=== PATIENT | female | born 2000 | race Caucasian/White ===

== ENCOUNTER 2020-08-12 08:13 | Emergency (ER) | payer SELFPAY ==
[~2020-08-12] VITALS: Ht 160 cm; Wt 59.1 kg
[2020-08-12 08:30] VITALS: BP 129/82
[2020-08-12] MEDS ORDERED: MAGIC MOUTHWASH1 M1 PO (09:46)
== END 2020-08-12 10:06 | disposition home or self-care (01) ==
LOC: ED 08:13
DX: J02.0 Streptococcal pharyngitis (principal)
CPT/HCPCS: J0561

== ENCOUNTER 2021-01-16 12:16 | Emergency (ER) | payer OTHER ==
[~2021-01-16 12:16] MED LIST: MAGIC MOUTHWASH1 M1 PO
[2021-01-16 12:20] VITALS: BP 133/79
== END 2021-01-16 13:03 | disposition home or self-care (01) ==
LOC: ED 12:16
DX: S60.021A Contusion of right index finger without damage to nail, initial encounter (principal); S60.031A Contusion of right middle finger without damage to nail, initial encounter; S60.041A Contusion of right ring finger without damage to nail, initial encounter; W23.1XXA Caught, crushed, jammed, or pinched between stationary objects, initial encounter; Y92.512 Supermarket, store or market as the place of occurrence of the external cause; Y99.0 Civilian activity done for income or pay